=== PATIENT | female | born 1985 | race Caucasian/White ===

== ENCOUNTER 2017-08-19 04:00 | Inpatient (IN) ==
[2017-08-19] MEDS ORDERED: *HR* Nalbuphine 20 MG/ML AMPUL IVP PRN (04:21)
[2017-08-19] MEDS ORDERED: Famotidine 20 MG/2 ML VIAL IVP PRN (04:21)
[2017-08-19] MEDS ORDERED: Lidocaine 1% 20 ML MDV ID PRN (04:21)
[2017-08-19] MEDS ORDERED: Naloxone 0.4 MG/ML INJ IVP PRN (04:21)
[2017-08-19] MEDS ORDERED: Metoclopramide 10 MG/2 ML VIAL IVP PRN (04:21)
[2017-08-19] MEDS ORDERED: miSOPROStol 25 MCG TABLET VG PRN (04:21)
[2017-08-19 05:15] LABS: Amphetamine Screen,Urine Negative ng/mL (Cutoff=1000); Barbiturate Screen,Urine Negative ng/mL (Cutoff=200); Benzodiazepines Screen,Urine Negative ng/mL (Cutoff=200); Cannabinoid Screen,Urine Negative ng/mL (Cutoff = 50); Cocaine Screen,Urine Negative ng/mL (Cutoff= 300); Opiate Screen,Urine Negative ng/mL (Cutoff=300); Phencyclidine Screen,Urine Negative ng/mL (Cutoff=25)
[2017-08-19 05:22] LABS: Basophils % 0.3 %; Eosinophils # 0.2 K/mcL (0.0-0.6); Eosinophils % 2.5 %; Hematocrit 38.9 % (35.3-44.9); Immature Granulocytes % 0.5 % (0-4); Lymphocytes # 2.3 K/mcL (0.6-4.6); Lymphocytes % 30.7 %; Mean Corpuscular HGB Conc 33.4 g/dL (31.6-35.5); Mean Corpuscular Hemoglobin 30.9 pg (28.0-33.3); Mean Corpuscular Volume 92.4 fL (83.0-100.0); Mean Platelet Volume 11.3 fL (9.4-12.4); Monocytes # 0.7 K/mcL (0.0-1.3); Monocytes % 9.3 %; Neutrophils # 4.3 K/mcL (1.6-8.9); Platelet Count 157 K/mcL (140-400); Red Blood Count 4.21 M/mcL (3.82-4.97); Red Cell Distribution Width 12.7 % (11.5-14.5); Segmented Neutrophils % 56.7 %
--- NOTE | 2017-08-19 06:21 | OB/GYN History & Physical ---
Date of Encounter: 08/19/17 Time of Encounter: 06:12 Assessment and Plan (1) 39 weeks gestation of Current visit: Yes Status: Acute (2) Prior macrosomia, antepartum Current visit: Yes Status: Acute Last infant weighed 10 lbs. 9 oz. at delivery (3) Elective induction of labor planned Current visit: Yes Status: Acute Cytotec Nubain and epidural as desired Anticipate History of Present Illness HPI: Ms. Traore is a 32 year old female. 39+2 weeks gestation presents to labor and delivery for induction of labor. Uncomplicated course. Patient's last baby was 10 lbs. 9 oz. delivered vaginally without any complications. Patient denies shoulder dystocia or hemorrhage following that delivery. Asked ultrasound put her at 37 weeks but baby at 61st percentile. Labs: O+, rubella immune, GBS negative, all other serologies negative Past Med Surg Social Fam HX - Past Medical History Psychiatric history: no psych history - Social History Smoking Status: Never smoker Alcohol use: none Drug use: none - Family History Father Hx Family Cancer: Yes Obstetrical History - Pregnancies : 2 Para: 1 Term: 0 : 0 Ab's: 0 Livin Medications and Allergies Vit/Iron Fumarate/FA [ Tablet] 1 each PO DAILY 08/19/17 [ History] 3 Allergy/AdvReac Type Severity Reaction Status Date / Time No Known Allergies Allergy Verified 08/19/17 04:40 Exam - Constitutional Constitutional: well developed, well nourished, no acute distress, average body habitus - Neck Neck exam: full ROM - Lungs Respiratory exam: CTAB - Cardiovascular Cardiovascular exam: RRR - Abdomen Abdomen: Present: gravid, non tender - Extremities Extremities exam: normal capillary refill, normal inspection Results Result Diagrams: 08/19/17 04:23 All other labs normal. - VTE Reasons for not Prescribing Prophylaxis: Treatment not Indicated - Low risk for VTE
[2017-08-19] MEDS: Ringers Solution, Lactated 1,000 ML IVC SCH ×2 (09:36→14:17)
--- NOTE | 2017-08-19 11:13 | OB Labor Progress Note ---
Date of Encounter: 08/19/17 Time of Encounter: 11:11 Labor Progress Note - Subjective Subjective: patient doing well, feeling more ctxs - Vital Signs Vital Signs: VSS - Cervix Cervix: 4cm/80% - Heart Tones Heart Tones: FHT CAT 1 - Plan Plan: will start pitocin, s/p cytotec 25mcg x 1 dose, ok for epidural, anticipate
--- NOTE | 2017-08-19 11:22 | Anesthesia Evaluation PreOp ---
Date of Encounter: 08/19/17 Time of Encounter: 11:20 - Past History Planned Operation: elinor Cardiac History: Denies any Significant Hx Pulmonary History: Denies Any Significant HX PROCESSOR HELPER History: Denies Any Significant HX Other Medical History: GERD Anesthesia History: No Prior Anesthetic Complications, Past Anesthesia (acl) : Yes (39 weeks, ) Alcohol Use: none Drug use: none Medications and Allergies Vit/Iron Fumarate/FA [ Tablet] 1 each PO DAILY 08/19/17 [ History] 3 Allergy/AdvReac Type Severity Reaction Status Date / Time No Known Allergies Allergy Verified 08/19/17 04:40 - Meds/Allergy Pre-op Review Medications Reviewed: Yes Allergies Reviewed: Yes Beta Blockers on Current Med List: No Anesthesia Results - Labs 08/19/17 04:23 Anesthesia Exam O2 Sat Height 1.83 m Weight 78.8 kg bp 107/72 hr 68 Height: 72 Weight: 78 - HEENT Pupil (Motor): Pupils equal Mallampati: I Teeth: Normal Oral Opening: Greater than 3 - PROCESSOR HELPER LOC: Oriented PROCESSOR HELPER Motor: Normal RUE, Normal LUE, Normal RLE, Normal LLE, Normal Face PROCESSOR HELPER Sensory: Normal: RUE, LUE, RLE, LLE, Face - Cardiac Rhythm: Regular Murmur: None JVD: No - Pulmonary Breath Sounds: bilateral Clear Respiratory Effort: Symmetrical Anesthesia Assess/Plan ASA Score: 2 Modified [place] Scale for Level of Consciousness: Cooperative, oriented, and tranquil Anesthetic Plan: Regional Monitoring Plan: Standard Monitors
[2017-08-19] MEDS ORDERED: Oxytocin 20 units/ LR 1000 mL 20 UNIT/1,000 ML BAG IVC SCH ×2 (11:30→20:17)
[2017-08-19] MEDS ORDERED: *HR* FentaNYL (PF) 100 MCG/2 ML VIAL ONE (13:50)
[2017-08-19] MEDS ORDERED: *HR* Ropivacaine/PF 0.2% 20 ML VIAL ONE (13:50)
[2017-08-19] MEDS ORDERED: Epidural Premix (fent/bupiv) 110 ML EP ONE (13:53)
[2017-08-19] MEDS ORDERED: *HR* FentaNYL (PF) 100 MCG/2 ML VIAL EP ONE (14:22)
[2017-08-19] MEDS ORDERED: *HR* Ropivacaine/PF 0.2% 20 ML VIAL EP ONE (14:22)
[2017-08-19] MEDS ORDERED: EPHEDrine 50 MG/ML VIAL IVP PRN (14:22)
[2017-08-19] MEDS ORDERED: Ondansetron 4 MG/2 ML VIAL IVP PRN (14:22)
--- NOTE | 2017-08-19 14:26 | Anesthesia Procedures ---
Date of Encounter: 08/19/17 Time of Encounter: 13:55 Procedures: Anesthesia - Epidural/Spinal Patient ID/Chart reviewed: Yes Patient examined: Yes OB Eval: Gestational age: 38 OB Eval: : 2 OB Eval: Hx Para: 1 OB Eval: Dilated at (cm): 3 OB Eval: Contractions: Non-stressed pattern Consent Obtained: Yes Supplemental Oxygen: None/Room Air Site Prep: Aseptic Technique Patient position: upright Local Anesthetic: Lidocaine 1% Amount of Local Anesthetic used: 3 Touhy Needle Gauge: 18 Touhy Needle Depth (cm): 6 Catheter Depth at Skin (cm): 12 Test Dose (1.5% Lido + Epi): Volume given (mls): 3 Test Dose Result: Negative Loading Dose: Fentanyl (mcg): 100 Loading Dose: Other: 7cc 0.2% ropivicaine Loading Dose Administered: Thru Touhy Needle Infusion Med: 0.125% Bupivacaine w/ 2 mcg/ml Fentanyl Infusion Rate (mls/hr): [address]: Tegaderm Interspace Used: L2-L3 Loss of Resistance (SUJIT): Yes Blood: No CSF: No Paresthesia: No
[2017-08-19] MEDS ORDERED: Epidural Premix (fent/bupiv) 110 ML EP SCH (14:30)
--- NOTE | 2017-08-19 15:32 | OB Labor Progress Note ---
Date of Encounter: 08/19/17 Time of Encounter: 15:30 Labor Progress Note - Subjective Subjective: patient is comfortable s/p epidural - Vital Signs Vital Signs: VSS - Cervix Cervix: 5/80%/0 - Heart Tones Heart Tones: FHT CAT 1 - Plan Plan: patient AROM'ed with clear fluid, anticipate
--- NOTE | 2017-08-19 17:25 | OB/GYN Procedure Note ---
Delivery - Delivery Date: 08/19/17 Provider: Xin Grimes Intrapartum events: none Delivery induction: misoprostol Delivery augmentation: rupture of membranes, pitocin Delivery monitor: external FHT Anesthesia: epidural Estimated Blood Loss: 350 - (s) Infant A Delivery Date: 08/19/17 Infant Delivery Time: 16:55 Presentation: vertex Position: SHIVA Route of delivery: Gender: Male Viability: Viable Pounds: 8 Ounces: 6 Weight Gram: 3805 kg at 1 minute: 8 at 5 mins: 9 Shoulder Dystocia: not encountered Specimens collected: cord blood Placenta: spontaneous - Repair Episiotomy: none Laceration Description: Perineal - 2nd Degree - Complications Delivery complications: none - Disposition Mom disposition: stable in LDR disposition: stable in LDR - Comments Comments: Alysia is a 32 y/o s/p s/p IOL delivered a viable male infant weight 3805g @ 1658hrs. No nuchal cord, infant delivered SHIVA, APGARs 8/9. Placenta delivered at 1702hrs, 2nd degree perineal laceration repaired with 3-0 vicryl. EBL 350. Mother and doing very well.
[2017-08-19] MEDS ORDERED: Acetaminophen 325 MG TABLET PO PRN (20:17)
[2017-08-19] MEDS ORDERED: Benzocaine/Menthol 56 GM AEROSOL SPRAY TP PRN (20:17)
[2017-08-19] MEDS: Ibuprofen 600 MG TABLET PO PRN (21:06)
[2017-08-20 04:39] LABS: Basophils % 0.2 %; Eosinophils # 0.2 K/mcL (0.0-0.6); Eosinophils % 1.3 %; Hematocrit 34.9 % (35.3-44.9); Hemoglobin 11.5 g/dL (11.5-15.4); Immature Granulocytes % 0.6 % (0-4); Lymphocytes # 2.5 K/mcL (0.6-4.6); Lymphocytes % 20.2 %; Mean Corpuscular Hemoglobin 30.6 pg (28.0-33.3); Mean Corpuscular Volume 92.8 fL (83.0-100.0); Mean Platelet Volume 10.8 fL (9.4-12.4); Monocytes # 0.9 K/mcL (0.0-1.3); Monocytes % 7.5 %; Platelet Count 153 K/mcL (140-400); Red Blood Count 3.76 M/mcL (3.82-4.97); Red Cell Distribution Width 12.5 % (11.5-14.5); Segmented Neutrophils % 70.2 %
[2017-08-20 04:42] LABS: Neutrophils # 8.6 K/mcL (1.6-8.9)
[2017-08-20] MEDS: Ibuprofen 600 MG TABLET PO PRN ×2 (06:23→15:47)
--- NOTE | 2017-08-20 08:31 | OB/GYN Progress Note ---
Date of Encounter: 08/20/17 Time of Encounter: 08:30 - Assessment and Plan (1) Status post induction of labor Current Visit: Yes Status: Acute Patient is doing well status post day #1 Pain is well-controlled Patient is tolerating regular diet Denies flatus or bowel movement Voiding without difficulty Lochia slight Reports difficulty latching Patient requests discharge home this evening Plan to discharge home today /continue current management of care (2) Prior macrosomia, antepartum Current Visit: Yes Status: Acute Subjective - Subjective Patient reports: appetite normal, voiding normally, pain well controlled, other (has not tried ambulating ) : doing well, other (difficulty latching) Objective - Latest Vital Signs Latest vital signs: Vital Signs Temp Pulse Resp BP Pulse Ox 08/20/17 07:30 98.0 F 72 16 98/66 08/20/17 03:34 98.1 F 76 16 99/64 97 08/19/17 22:17 98.1 F 73 16 101/64 98 08/19/17 21:00 98.2 F 65 18 111/72 99 08/19/17 20:00 97.6 F 63 16 104/69 98 Intake and Output 08/19/17 08/20/17 08/20/17 23:59 07:59 15:59 Intake Total 700 / 700 Output Total 950 / 950 900 / 900 Balance -950 / -950 -200 / -200 Intake: Oral 700 / 700 Output: Urine 650 / 650 900 / 900 Catheter 300 / 300 Urethral (Stewart) 300 / 300 - Exam Lungs: bilateral: normal Chest: Normal S1, Normal S2 Extremities: Present: normal Abdomen: Present: normal appearance, soft, gravid Uterus: Present: normal, firm Uterus Position: 1 Finger Below Umbilicus, Midline Comments: I examined this patient and my medical decision-making was reviewed with the Resident Physician. I agree with the documented findings, disposition and treatment plan as described except to the extent set forth below. Patient to be discharged home today. ZULEIKA Berg - Labs Labs: Laboratory Results - last 24 hr 08/20/17 04:14 WBC 12.2 H D RBC 3.76 L Hgb 11.5 D Hct 34.9 L MCV 92.8 MCH 30.6 MCHC 33.0 RDW 12.5 Plt Count 153 MPV 10.8 Immature Gran % 0.6 Seg Neutrophils % 70.2 Lymphocytes % 20.2 Monocytes % 7.5 Eosinophils % 1.3 Basophils % 0.2 Neutrophils # 8.6 Lymphocytes # 2.5 Monocytes # 0.9 Eosinophils # 0.2 Basophils # 0.0
[2017-08-20] MEDS ORDERED: Prenatal Vit/FA 1 EACH TABLET PO SCH (09:00)
--- NOTE | 2017-08-20 09:48 | Discharge Summary ---
Date of Encounter: 08/21/17 Time of Encounter: 09:00 - Discharge Diagnosis (1) Status post induction of labor Priority: Primary Status: Acute (2) Prior macrosomia, antepartum Priority: Primary Status: Acute - Discharge Medications Prescriptions: Acetaminophen [Tylenol] 650 mg PO Q6HR #30 tablet Home Medications: Vit/Iron Fumarate/FA [ Tablet] 1 each PO DAILY 08/19/17 [ History] Acetaminophen [Tylenol] 650 mg PO Q6HR #30 tablet 08/20/17 [Rx] Allergies/Adverse Reactions: 3 Allergy/AdvReac Type Severity Reaction Status Date / Time No Known Allergies Allergy Verified 08/19/17 04:40 Data Procedures and tests throughout hospitalization: Laboratory Tests 08/19/17 08/19/17 08/20/17 04:23 04:45 04:14 WBC 7.6 12.2 H D RBC 4.21 3.76 L Hgb 13.0 11.5 D Hct 38.9 34.9 L MCV 92.4 92.8 MCH 30.9 30.6 MCHC 33.4 33.0 RDW 12.7 12.5 Plt Count 157 153 MPV 11.3 10.8 Immature Gran % 0.5 0.6 Seg Neutrophils % 56.7 70.2 Lymphocytes % 30.7 20.2 Monocytes % 9.3 7.5 Eosinophils % 2.5 1.3 Basophils % 0.3 0.2 Neutrophils # 4.3 8.6 Lymphocytes # 2.3 2.5 Monocytes # 0.7 0.9 Eosinophils # 0.2 0.2 Basophils # 0.0 0.0 Urine Opiates Screen Negative Ur Barbiturates Screen Negative Ur Phencyclidine Scrn Negative Ur Amphetamines Screen Negative U Benzodiazepines Scrn Negative Urine Cocaine Screen Negative U Marijuana (THC) Screen Negative Labs on day of discharge: Labs from last 24 hours 08/20/17 04:14 WBC 12.2 H D RBC 3.76 L Hgb 11.5 D Hct 34.9 L MCV 92.8 MCH 30.6 MCHC 33.0 RDW 12.5 Plt Count 153 MPV 10.8 Immature Gran % 0.6 Seg Neutrophils % 70.2 Lymphocytes % 20.2 Monocytes % 7.5 Eosinophils % 1.3 Basophils % 0.2 Neutrophils # 8.6 Lymphocytes # 2.5 Monocytes # 0.9 Eosinophils # 0.2 Basophils # 0.0 Date of admission: 08/19/17 04:10 Primary care physician: PCP NONE Consults: 08/19/17 20:17 Consult to Manager Of Corporate Communications [CONS] Routine Comment: Vaginal delivery, consult needed - Patient Status Disposition: Home, Self-Care Condition: Good Functional capacity at discharge: independent ambulation Overall status at discharge: patient is back to baseline - Discharge Instructions Follow Up With: NONE,PCP [Primary Care Provider] - - Diet and Activity Activity: resume usual activities as tolerated Diet: advance to your usual diet Hospital Course STERILE TECH Time Attestation: Total time spent providing and/or coordinating discharge services: Exam - Constitutional Vitals: Temp Pulse Resp BP Pulse Ox 98.0 F 72 16 98/66 97 08/20/17 07:30 08/20/17 07:30 08/20/17 07:30 08/20/17 07:30 08/20/17 03:34 General appearance IM: A&O X 3 - Respiratory Respiratory exam: Present: CTAB - Cardiovascular Cardiovascular exam IM: Present: RRR, +S1, +S2 - Extremities Exam Extremities exam IM: Present: warm, radial pulses palpable and symmetrical - Neurological Exam Neurological exam: CN II-XII intact - VTE Reasons for not Prescribing Prophylaxis: Treatment not Indicated - Low risk for VTE
[2017-08-20 15:36] VITALS: BP 103/64
== END 2017-08-20 18:37 | disposition home or self-care (01) | DRG 560 ==
LOC: 1NENULAB 04:10 → 1NENUOBS 20:14
PROVIDERS: ADMIT Student in an Organized Health Care Education/Training Program; ATTEND Student in an Organized Health Care Education/Training Program